=== PATIENT | male | born 1995 | race Two or more races ===

== ENCOUNTER 2020-03-31 19:12 | Emergency (ER) | payer OTHER ==
[~2020-03-31] VITALS: Ht 172.7 cm; Wt 77.1 kg
[2020-03-31 19:22] VITALS: BP 139/80
[2020-03-31] MEDS ORDERED: LIDOCAINE MPF 1%-EPI 1:200,000 30 ML VIAL IJ ONE (19:53)
== END 2020-03-31 20:39 ==
LOC: ER 19:13
DX: S81.012A Laceration without foreign body, left knee, initial encounter (principal); S81.811A Laceration without foreign body, right lower leg, initial encounter; M79.642 Pain in left hand; W25.XXXA Contact with sharp glass, initial encounter; Y93.89 Activity, other specified; Y92.89 Other specified places as the place of occurrence of the external cause; Y99.8 Other external cause status
CPT/HCPCS: 12002; 73130; 73560; 73590; 99284; A6403; J3490